=== PATIENT | male | born 1975 | race Asian ===

== ENCOUNTER 2017-12-26 10:47 | Emergency (ER) | payer BC ==
[~2017-12-26] VITALS: Ht 157.5 cm; Wt 76.7 kg
[2017-12-26] MEDS ORDERED: DEXAMETHASONE SOD PHOS 10 MG/ML VIAL ONE (10:59)
[2017-12-26] MEDS ORDERED: diphenhydrAMINE 50 MG/ML VIAL ONE (10:59)
[2017-12-26] MEDS ORDERED: FAMOTIDINE 20 MG/2 ML VIAL ONE (10:59)
[2017-12-26] MEDS ORDERED: IV NORMAL SALINE 1,000ML 1,000 ML IV ONE (11:00)
--- NOTE | 2017-12-26 11:13 | PHYS DOC ---
Adult General Chief Complaint Chief Complaint: ALLERGIC REACTION HPI HPI Patient is a very pleasant 42-year-old male who presents for evaluation of allergic reaction. He states that he made a protein shake with a banana and that he has made this combination previously and then noticed an itch she rash developing. He states that he felt short of breath and that his lips felt unusual and was worried that they might start to swell. He says that he felt somewhat short of breath and anxious. Upon arrival the patient has an urticarial rash to his bilateral upper extremities that he does not have any oropharyngeal swelling or wheezing or respiratory distress. He has no known drug allergies. He denies any new foods or medications today. Review of Systems Review of Systems Constitutional: Denies fever or chills [] Eyes: Denies change in visual acuity, redness, or eye pain [] HENT: Denies nasal congestion or sore throat [] Respiratory: Denies cough [] +sob Cardiovascular: No additional information not addressed in HPI [] GI: Denies abdominal pain, nausea, vomiting, bloody stools or diarrhea [] : Denies dysuria or hematuria [] Musculoskeletal: Denies back pain or joint pain [] Integument: [] +hives Neurologic: Denies headache, focal weakness or sensory changes [] Endocrine: Denies polyuria or polydipsia [] All other systems were reviewed and found to be within normal limits, except as documented in this note. Current Medications Current Medications Current Medications Medications (Trade) Dose Ordered Sig/Akiko Start Time Stop Time Status Last Admin Dose Admin Dexamethasone Sodium Phosphate (Decadron) 10 mg STK-MED ONCE 12/26/17 10:59 12/26/17 11:00 DC Diphenhydramine HCl (Benadryl) 50 mg STK-MED ONCE 12/26/17 10:59 12/26/17 11:00 DC Epinephrine HCl 0.3 mg 1X ONCE 12/26/17 11:20 12/26/17 11:21 Famotidine (Pepcid Vial) 20 mg STK-MED ONCE 12/26/17 10:59 12/26/17 11:00 DC Sodium Chloride 1,000 ml @ 1,000 mls/hr 1X ONCE 12/26/17 11:00 12/26/17 11:59 Allergies Allergies Allergies Coded Allergies Type Severity Reaction Last Updated Verified No Known Drug Allergies 12/26/17 No Physical Exam Physical Exam Constitutional: Well developed, well nourished, no acute distress, non-toxic appearance. [] HENT: Normocephalic, atraumatic, bilateral external ears normal, oropharynx moist, no oral exudates, nose normal. [] No oropharyngeal swelling/redness/edema , airway patent Eyes: PERRLA, EOMI, conjunctiva normal, no discharge. [] Neck: Normal range of motion, no tenderness, supple, no stridor. [] Cardiovascular:Heart rate regular rhythm, no murmur [] Lungs & Thorax: Bilateral breath sounds clear to auscultation [] no wheezing or resp distress Abdomen: Bowel sounds normal, soft, no tenderness, no masses, no pulsatile masses. [] Skin: Warm, dry, no erythema [] +urticarial rash on b/l upper extremities Back: No tenderness, no CVA tenderness. [] Extremities: No tenderness, no cyanosis, no clubbing, ROM intact, no edema. [] Neurologic: Alert and oriented X 3, normal motor function, normal sensory function, no focal deficits noted. [] Psychologic: Affect normal, judgement normal, mood normal. [] +anxious EKG EKG [] Radiology/Procedures Radiology/Procedures [] Course & Med Decision Making Course & Med Decision Making Pertinent Labs and Imaging studies reviewed. (See chart for details) [] Dragon Disclaimer Dragon Disclaimer This electronic medical record was generated, in whole or in part, using a voice recognition dictation system. @1302 - patient states he felt much better and his rash has resolved. He has no further complaints and states he is ready for discharge. The patient will be sent home with prednisone, Benadryl, and Pepcid. He is stable for discharge. Advised patient to avoid the protein powder that he used today as well as bananas for the time being. Departure Departure: Impression: Primary Impression: Allergic reaction Disposition: 01 HOME, SELF-CARE Condition: STABLE Referrals: DAPHNE EATON (PCP) Patient Instructions: Allergies, Generic, Food Allergy Additional Instructions: Take the medication as prescribed. Return to the ER for new or worsening symptoms. Follow-up with your doctor next 1-2 days. For the time being you should avoid the protein powder and bananas. Under the supervision of your physician you may be able to reintroduce these in very small quantities wanted a time in the future. Scripts Famotidine (PEPCID) 20 Mg Tablet 40 MG PO DAILY for 5 Days, #10 TAB Prov: MO CRUZ DO 12/26/17 Prednisone (PREDNISONE) 20 Mg Tablet 2 TAB PO DAILY for 5 Days, #10 TAB Prov: MO CRUZ DO 12/26/17 MO CRUZ DO Dec 26, 2017 11:13
[2017-12-26] MEDS ORDERED: diphenhydrAMINE 50 MG/ML VIAL IVP ONE (11:20)
[2017-12-26] MEDS ORDERED: EPINEPHrine 1 MG/ML AMPUL IM ONE (11:20)
[2017-12-26] MEDS ORDERED: FAMOTIDINE 20 MG/2 ML VIAL IVP ONE (11:20)
[2017-12-26] MEDS ORDERED: DEXAMETHASONE SOD PHOS 10 MG/ML VIAL IV ONE (11:20)
[2017-12-26] MEDS ORDERED: ONDANSETRON PF 4 MG/2 ML VIAL. IV ONE (11:30)
[2017-12-26] MEDS ORDERED: PRED20TA PO (13:08)
[2017-12-26] MEDS ORDERED: FAMO-63 PO (13:08)
[2017-12-26 13:23] VITALS: BP 128/81
== END 2017-12-26 17:57 | disposition home or self-care (01) ==
LOC: ER 10:47
DX: R06.02 Shortness of breath (principal); L50.9 Urticaria, unspecified; T78.49XA Other allergy, initial encounter; X58.XXXA Exposure to other specified factors, initial encounter
CPT/HCPCS: 96372; 96374; 96375; 99284; J0171; J1100; J1200; J2405; S0028; J7030

== ENCOUNTER 2019-03-01 14:00 | Emergency (ER) | payer BC ==
[~2019-03-01] VITALS: Ht 157.5 cm; Wt 78.0 kg
[~2019-03-01 14:00] MED LIST: FAMO-63 PO; PRED20TA PO
[2019-03-01 14:08] VITALS: BP 114/59
[2019-03-01] MEDS ORDERED: TRAM50TA PO (14:45)
[2019-03-01] MEDS ORDERED: MELO7.5T29 PO (14:45)
--- NOTE | 2019-03-01 14:45 | PHYS DOC ---
Past History Past Medical History: High Cholesterol, Hypertension, Hypothyroid Past Surgical History: No Surgical History Alcohol Use: None Drug Use: None Adult General Chief Complaint Chief Complaint: LOWER EXTREMITY SWELLING HPI HPI Patient is a 43-year-old male presents complaining of right calf pain and swelling in a localized area after being struck with a softball 10 days ago. Patient was pitching when the ball was hit back striking him in the calf. He has continued pain and swelling locally in the proximal portion of the calf. No significant relief with acetaminophen. He is able to walk. No numbness or tingling. Bruising is present. Nothing makes the discomfort better or worse. He has not sought care from his primary care physician for this.[] Review of Systems Review of Systems Constitutional: Denies fever or chills [] Eyes: Denies change in visual acuity, redness, or eye pain [] HENT: Denies nasal congestion or sore throat [] Respiratory: Denies cough or shortness of breath [] Cardiovascular: No additional information not addressed in HPI [] GI: Denies abdominal pain, nausea, vomiting, bloody stools or diarrhea [] : Denies dysuria or hematuria [] Musculoskeletal: Denies back pain, see history of present illness[] Integument: Denies rash or skin lesions [] Neurologic: Denies headache, focal weakness or sensory changes [] Endocrine: Denies polyuria or polydipsia [] All other systems were reviewed and found to be within normal limits, except as documented in this note. Allergies Allergies Allergies Coded Allergies Type Severity Reaction Last Updated Verified No Known Drug Allergies 03/01/19 No Physical Exam Physical Exam Constitutional: Well developed, well nourished, no acute distress, non-toxic appearance. [] HENT: Normocephalic, atraumatic, bilateral external ears normal, oropharynx moist, no oral exudates, nose normal. [] Eyes: PERRLA, EOMI, conjunctiva normal, no discharge. [] Neck: Normal range of motion, no tenderness, supple, no stridor. [] Cardiovascular:Heart rate regular rhythm, no murmur [] Lungs & Thorax: Bilateral breath sounds clear to auscultation [] Abdomen: Not examined. [] Skin: Warm, dry, no erythema, no rash. [] Back: No tenderness, no CVA tenderness. [] Extremities: Right calf has a hematoma approximately 5 cm diameter in the proximal medial portion. There is bruising in the distal anterior calf. There is tenderness to palpation over this hematoma. There is no knee tenderness, no ankle tenderness. No varus or valgus laxity of the knee. Patient is distally neurovascularly intact. A joint above and joined below were evaluated and were normal. The other 3 extremities show: No tenderness, no cyanosis, no clubbing, ROM intact, no edema. [] Neurologic: Alert and oriented X 3, normal motor function, normal sensory function, no focal deficits noted. [] Psychologic: Affect normal, judgement normal, mood normal. [] Current Patient Data Vital Signs Vital Signs Date Time Temp Pulse Resp B/P (MAP) Pulse Ox O2 Delivery O2 Flow Rate FiO2 03/01/19 14:08 97.5 67 18 96 Room Air EKG EKG [] Radiology/Procedures Radiology/Procedures X-ray of the tibia and fibula shows no fracture or dislocation. No extra calcium deposit.[] Course & Med Decision Making Course & Med Decision Making Pertinent Labs and Imaging studies reviewed. (See chart for details) ED course: Patient arrived, was placed in bed, in tolerated exam well. He was transferred to and from radiology with any complications. After the return of the imaging findings, these were discussed with the patient. All questions were answered. He was discharged in improved condition. Medical decision making: Patient appears to have a hematoma from the softball strike. There is no evidence of a fracture, dislocation, nor calcium deposition at this time.[] Dragon Disclaimer Dragon Disclaimer This electronic medical record was generated, in whole or in part, using a voice recognition dictation system. Departure Departure: Impression: Primary Impression: Hematoma Disposition: 01 HOME, SELF-CARE Condition: IMPROVED Referrals: DAPHNE EATON (PCP) Follow-up in 2 days Patient Instructions: Hematoma Additional Instructions: Follow-up with your regular doctor in 2 days. Apply warm compresses to the area for 15 minutes at a time, at least 4 times a day. You may need to have ultrasound therapy to help break up the hematoma. This can be arranged by your primary care physician if they feel it is appropriate. Return to the ER if wors ening discomfort, or any other concerns. Scripts Tramadol Hcl (TRAMADOL HCL) 50 Mg Tablet 50 MG PO PRN Q6HRS PRN for PAIN, #20 TAB Prov: JONNA HUERTA DO 03/01/19 Meloxicam (MELOXICAM) 7.5 Mg Tablet 7.5 MG PO DAILY for PAIN, #20 TAB Prov: JONNA HUERTA DO 03/01/19 JONNA HUERTA DO Mar 01, 2019 14:45
--- NOTE | 2019-03-01 14:50 | RAD ---
Examination: 2 views of the right tibia and fibula HISTORY: History of injury to the leg COMPARISON: None available. FINDINGS: The alignment of the tibia and fibula grossly appears unremarkable. There is no obvious acute fracture identified. IMPRESSION: No acute osseous findings. Electronically signed by: Cristino Mijares MD (03/01/2019 2:47 PM) [place] [id number]
== END 2019-03-01 14:49 | disposition home or self-care (01) ==
LOC: ER 14:00
DX: S80.11XA Contusion of right lower leg, initial encounter (principal); E78.00 Pure hypercholesterolemia, unspecified; I10 Essential (primary) hypertension; E03.9 Hypothyroidism, unspecified; W21.07XA Struck by softball, initial encounter; Y93.89 Activity, other specified; Y92.89 Other specified places as the place of occurrence of the external cause; Y99.8 Other external cause status
CPT/HCPCS: 73590; 99284